=== PATIENT | male | born 1940 | race Caucasian/White ===

== ENCOUNTER 2017-07-30 07:38 | Day surgery (SDC) | payer MEDICARE, BC ==
[2017-07-30] MEDS: Dextrose 5%-Lactated Ringers 1,000 ML IV SCH ×2 (08:13→11:02)
[2017-07-30] MEDS ORDERED: Glycopyrrolate 0.2 MG/ML 2 ML SDV IVPUSH ONE (08:15)
[2017-07-30] MEDS ORDERED: Midazolam 1 MG/ML 2 ML SDV ONE (09:58)
[2017-07-30] MEDS ORDERED: Propofol 200 MG/20 ML SDV ONE (09:58)
[2017-07-30] MEDS ORDERED: fentaNYL 100 MCG/2 ML SDV ONE (09:58)
[2017-07-30 11:55] VITALS: BP 126/83
--- NOTE | 2017-08-05 13:28 | OR ---
DATE OF PROCEDURE: 07/30/2017 PREOPERATIVE DIAGNOSES: 1. Epigastric pain. 2. Indications for screening colonoscopy. POSTOPERATIVE DIAGNOSES: 1. Diffuse bile gastritis. 2. Uncomplicated left colonic diverticulosis. OPERATIVE PROCEDURES: 1. Upper GI endoscopy with;. a. Biopsies of antrum for CLOtest. b. Multiple biopsies of the gastric body and antrum for histologic evaluation. 2. Flexible colonoscopy. ANESTHESIA: IV sedation. INDICATION FOR PROCEDURE: This is a 77-year-old presenting with some epigastric discomfort as well as some mild intermittent nausea. Apart from that, the patient is scheduled for a colonoscopy as well as a screening type procedure. Potential risks including bleeding and perforation were discussed from the procedure's end, and he wishes to proceed. DETAILS OF PROCEDURE: The patient was taken to the operating room and placed in a left lateral decubitus position. IV sedation was administered, after which the upper GI endoscope was passed orally through the length of the esophagus and into the stomach with retroflexion view of the fundus, and thereafter through the pyloric channel and into the proximal duodenum. Findings included a normal hypopharynx, larynx, upper esophageal sphincter, and esophageal body. At the EG junction, no significant abnormalities were noted. However, as one entered the stomach, there was diffuse gastritis with quite a bit of bile present with the entire gastritic surface being reddened and somewhat edematous. There were no erosions or ulcers present. The peak of the inflation was in the distal body and antrum. Pyloric channel and duodenum to the junction of the third and fourth portions were otherwise unremarkable. Following this, then biopsies were obtained from the antrum and sent for CLOtest for H. pylori. Multiple biopsies were then sent for histologic evaluation from the body and antrum. Minimal bleeding from the biopsy sites was seen, and the procedure then concluded. Attention was then taken to the colonoscopy. Initial digital rectal exam was performed and was unremarkable. Colonoscope was then passed into the rectum with retroflexion revealing uncomplicated hemorrhoidal columns. The scope was then eventually passed to the level of the cecum. The prep was fairly good with there only being a small amount of liquid stool present. The patient had some uncomplicated left colonic diverticulosis. Otherwise, there were no areas of colitis. No polyps or other signs of neoplasia. The scope was then withdrawn, the above findings were reconfirmed, and the procedure then concluded. Plan at this point will be to begin the patient on Carafate 1 gram q.i.d. to be taken on an empty stomach. He also is instructed to use some Gaviscon [id number] on a p.r.n. basis. I think with the bile gastritis, a cytoprotective strategy may be better than a proton pump or H2 lupe. He will be following up with Dr. Rosado in [facility] in 3 to 4 weeks. Michi Alba MD /[id number]
== END 2017-07-30 12:10 | disposition home or self-care (01) ==
LOC: JP.SDS 07:38
PROVIDERS: ATTEND Surgery
DX: Z12.11 Encounter for screening for malignant neoplasm of colon (principal); K29.60 Other gastritis without bleeding; K57.30 Diverticulosis of large intestine without perforation or abscess without bleeding; J44.9 Chronic obstructive pulmonary disease, unspecified; Z87.891 Personal history of nicotine dependence; Z90.49 Acquired absence of other specified parts of digestive tract; Z98.890 Other specified postprocedural states
CPT/HCPCS: 43239; 87081; G0121; J2250; J2704; J3010; J7042; J3490

== ENCOUNTER 2024-05-31 16:31 | Emergency (ER) | payer MEDICARE ==
[2024-05-31 16:51] LABS: BASOPHILS ABSOLUTE AUTO 0.07 K/uL (0.00-0.10); BASOPHILS PERCENT AUTO 0.9 % (0.1-1.3); EOSINOPHILS ABSOLUTE AUTO 0.09 K/uL (0.00-0.40); EOSINOPHILS PERCENT AUTO 1.1 % (0.0-5.4); HEMATOCRIT 43.2 % (38.4-49.7); HEMOGLOBIN 15.1 g/dL (12.9-16.9); IMMATURE GRAN ABSOLUTE AUTO 0.09 K/uL (0.00-0.23); IMMATURE GRAN PERCENT AUTO 1.1 % (0.0-0.7); LYMPHOCYTES ABSOLUTE AUTO 2.46 K/uL (0.8-3.3); LYMPHOCYTES PERCENT AUTO 30.9 % (11.4-47.7); MEAN CORPUSCULAR HEMOGLOBIN 34.2 pg (31.6-35.5); MONOCYTES ABSOLUTE AUTO 0.86 K/uL (0.20-0.90); MONOCYTES PERCENT AUTO 10.8 % (3.3-12.6); NEUTROPHILS ABSOLUTE AUTO 4.39 K/uL (1.0-7.6); NEUTROPHILS PERCENT AUTO 55.2 % (40.0-78.1); PLATELET COUNT,PLT 256 K/uL (130-375); RED BLOOD CELL COUNT 4.41 M/uL (4.14-5.76)
[2024-05-31 17:21] LABS: A/G RATIO 0.9 (1.2-2.2); ALANINE AMINOTRANSFERASE,ALT 21 U/L (12-78); ALBUMIN 3.4 g/dL (3.4-5.0); ALKALINE PHOSPHATASE 89 U/L (46-116); ANION GAP 8.6 mmol/L (5.0-14.0); ASPARTATE AMNIOTRANSFERASE,AST 18 U/L (15-37); BILIRUBIN TOTAL 0.3 mg/dL (0.2-1.0); BLOOD UREA NITROGEN,BUN 26 mg/dL (7-18); CALCIUM 8.6 mg/dL (8.5-10.1); CARBON DIOXIDE,CO2 26 mmol/L (21-32); CHLORIDE,CL 105 mmol/L (100-108); CREATINE KINASE,CK 96 U/L (39-308); CREATININE 1.6 mg/dL (0.8-1.3); EST CRCL DRUG DOSING (CG) 29.14 mL/min; ESTIMATED GFR 43 mL/min (>60); GLUCOSE RANDOM 120 mg/dL (74-106); POTASSIUM,K 4.4 mmol/L (3.6-5.2); PROTEIN TOTAL,TP 7.3 g/dL (6.4-8.2); SODIUM,NA 140 mmol/L (140-148)
[2024-05-31 18:07] LABS: APPEARANCE,URINE CLEAR (CLEAR); BILIRUBIN,URINE NEGATIVE (NEGATIVE); COLOR,URINE YELLOW (YELLOW); GLUCOSE,URINE NEGATIVE (NEGATIVE); KETONES,URINE NEGATIVE (NEGATIVE); LEUKOCYTE ESTERASE,URINE NEGATIVE (NEGATIVE); NITRITE,URINE NEGATIVE (NEGATIVE); OCCULT BLOOD,URINE NEGATIVE (NEGATIVE); PH,URINE 6.5 (5.0-8.0); PROTEIN,URINE NEGATIVE (NEGATIVE); UROBILINOGEN,URINE 0.2 EU/dL (0.2-1.0)
[2024-05-31 18:13] LABS: AMORPHOUS SEDIMENT,URINE NOT SEEN; BACTERIA,URINE NOT SEEN; EPITHELIAL CELLS,URINE FEW; MUCUS,URINE NOT SEEN; RBC,URINE NOT SEEN (0-5); WBC,URINE NOT SEEN (0-5)
== END 2024-05-31 19:10 | disposition home or self-care (01) ==
LOC: JP.ED 16:31
DX: S42.024A Nondisplaced fracture of shaft of right clavicle, initial encounter for closed fracture (principal); S42.114A Nondisplaced fracture of body of scapula, right shoulder, initial encounter for closed fracture; S22.31XA Fracture of one rib, right side, initial encounter for closed fracture; S00.03XA Contusion of scalp, initial encounter; Z79.899 Other long term (current) drug therapy; W11.XXXA Fall on and from ladder, initial encounter
CPT/HCPCS: 36415; 70450; 70450-26; 71250; 71250-26; 72125; 72125-26; 76377; 76377-26; 80053; 81001; 82550; 83605; 85025; 99284